=== PATIENT | male | born 1930 | race Caucasian/White ===

== ENCOUNTER 2017-09-20 15:00 | Inpatient (IN) | payer MEDICARE ==
[~2017-09-20] VITALS: Ht 170.2 cm; Wt 56.0 kg
[~2017-09-20 15:00] MED LIST: ASPIRIN 81 MG E81 MG PO; CELEXA20 MG PO; PRILOSEC20 MG PO; SYMBICORT 16010.2 GM INH; VENTOLIN HFA18 GM INH; XANAX0.5 MG
[2017-09-20 15:35] LABS: BASOPHILS 0.3 % (0-2); EOSINOPHILS 0.4 % (0-7); HEMATOCRIT 44.1 % (42.0-54.0); HEMOGLOBIN 14.5 g/dL (13.5-17.5); IMMATURE GRANULOCYTES 1.6 % (0-5); LYMPHOCYTES 13.6 % (15-50); MCH 32.2 pg (26.0-34.0); MCHC 32.9 g/dL (31.0-37.0); MCV 97.8 fL (80.0-100.0); MEAN PLATELET VOLUME 9.9 fL (7.4-10.4); MONOCYTES 20.5 % (2-11); NEUTROPHILS 63.6 % (40-80); RBC 4.51 10x6/uL (4.20-6.10); RDW 14.4 % (11.5-14.5); WBC 7.4 10x3/uL (4.8-10.8)
[2017-09-20 15:36] LABS: PLATELET COUNT 343 10x3/uL (130-400)
[2017-09-20 15:47] LABS: INR 1.2 (0.85-1.17); PROTIME 14.7 SECONDS (11.6-15.0)
[2017-09-20 15:51] LABS: ALBUMIN 3.2 g/dL (3.4-5.0); ALKALINE PHOSPHATASE 81 U/L (46-116); ALT (SGPT) 36 U/L (10-68); BILIRUBIN - TOTAL 0.89 mg/dL (0.2-1.3); CALC OSMOLALITY 272 mosm/kg (275-300); CARBON DIOXIDE 27.4 mmol/L (21.0-32.0); CHLORIDE - SERUM 97 mmol/L (98-107); CREATININE - SERUM 0.9 mg/dL (0.6-1.3); GLUCOSE 98 mg/dL (74-106); POTASSIUM - SERUM 3.9 mmol/L (3.5-5.1); PROTEIN - SERUM 8.1 g/dL (6.4-8.2); SODIUM 137 mmol/L (136-145); UREA NITROGEN 11 mg/dL (7-18); eGFR NON AFRICAN AMERICAN 85 mL/min (90-120)
[2017-09-20 15:58] LABS: PRO BNP 467 pg/mL (0-450)
[2017-09-20 16:03] LABS: TROPONIN-I < 0.017 ng/mL (0.000-0.060)
[2017-09-20 17:15] LABS: APPEARANCE CLEAR (CLEAR); BILIRUBIN NEGATIVE (NEGATIVE); COLOR AMBER (YELLOW); GLUCOSE NEGATIVE (NEGATIVE); KETONE MODERATE mg/dL (NEGATIVE); NITRITE NEGATIVE (NEGATIVE); PROTEIN TRACE mg/dL (NEGATIVE); UROBILINOGEN NORMAL (NORMAL)
[2017-09-20 17:18] LABS: BACTERIA FEW /hpf (NONE SEEN); MUCUS <1+ /lpf (NONE SEEN); RED CELLS - URINE RARE /hpf (0-5); WHITE CELLS - URINE 0-5 /hpf (0-5)
[2017-09-20 20:37] LABS: UDS - AMPHET NEGATIVE QUAL (NEGATIVE); UDS - BARB NEGATIVE QUAL (NEGATIVE); UDS - BENZO NEGATIVE QUAL (NEGATIVE); UDS - COCAINE NEGATIVE QUAL (NEGATIVE); UDS - OPIATE NEGATIVE QUAL (NEGATIVE); UDS - PCP NEGATIVE QUAL (NEGATIVE); UDS - THC NEGATIVE QUAL (NEGATIVE)
[2017-09-21] MEDS ORDERED: ADVAIR HFA 230-12 GM INH (00:18)
[2017-09-21] MEDS ORDERED: KLONOPIN1 MG PO (00:20)
[2017-09-21 04:00] VITALS: BP 142/68
[2017-09-21 04:39] VITALS: BP 149/73; BMI 19.3
[2017-09-21 05:50] LABS: BASOPHILS 0.1 % (0-2); EOSINOPHILS 0 % (0-7); IMMATURE GRANULOCYTES 0.6 % (0-5); MCH 31.5 pg (26.0-34.0); MCHC 32.5 g/dL (31.0-37.0); MCV 96.9 fL (80.0-100.0); MEAN PLATELET VOLUME 9.4 fL (7.4-10.4); NEUTROPHILS 50.3 % (40-80); PLATELET COUNT 370 10x3/uL (130-400); RDW 14.1 % (11.5-14.5); WBC 7.8 10x3/uL (4.8-10.8)
[2017-09-21 05:58] LABS: HEMATOCRIT 34.5 % (42.0-54.0); HEMOGLOBIN 11.2 g/dL (13.5-17.5); RBC 3.56 10x6/uL (4.20-6.10)
[2017-09-21 06:10] LABS: ALBUMIN 2.6 g/dL (3.4-5.0); ALKALINE PHOSPHATASE 71 U/L (46-116); CALCIUM 8.3 mg/dL (8.5-10.1); CHLORIDE - SERUM 100 mmol/L (98-107); CREATININE - SERUM 0.8 mg/dL (0.6-1.3); GLUCOSE 94 mg/dL (74-106); PROTEIN - SERUM 6.7 g/dL (6.4-8.2); SODIUM 136 mmol/L (136-145); eGFR NON AFRICAN AMERICAN > 90 mL/min (90-120)
[2017-09-21 06:13] LABS: ALT (SGPT) 26 U/L (10-68); CALC OSMOLALITY 269 mosm/kg (275-300); POTASSIUM - SERUM 3.1 mmol/L (3.5-5.1); UREA NITROGEN 8 mg/dL (7-18)
[2017-09-21 06:50] LABS: CARBON DIOXIDE 26.6 mmol/L (21.0-32.0)
[2017-09-21 08:17] VITALS: BP 141/73
[2017-09-21 12:14] VITALS: BMI 19.3
[2017-09-21 12:22] VITALS: Ht 170.2 cm; Wt 56.0 kg
[2017-09-21 12:45] VITALS: BP 165/83
[2017-09-21 16:51] VITALS: BP 143/87
[2017-09-21 20:00] VITALS: BP 145/83
[2017-09-22 04:00] VITALS: BP 137/72
[2017-09-22 06:49] LABS: BASOPHILS 0.1 % (0-2); EOSINOPHILS 0 % (0-7); HEMATOCRIT 37.8 % (42.0-54.0); HEMOGLOBIN 12.5 g/dL (13.5-17.5); IMMATURE GRANULOCYTES 1.3 % (0-5); LYMPHOCYTES 19.5 % (15-50); MCH 31.8 pg (26.0-34.0); MCHC 33.1 g/dL (31.0-37.0); MCV 96.2 fL (80.0-100.0); MEAN PLATELET VOLUME 9.5 fL (7.4-10.4); MONOCYTES 21.5 % (2-11); NEUTROPHILS 57.6 % (40-80); PLATELET COUNT 421 10x3/uL (130-400); RBC 3.93 10x6/uL (4.20-6.10); WBC 8.7 10x3/uL (4.8-10.8)
[2017-09-22 07:08] LABS: CALC OSMOLALITY 267 mosm/kg (275-300); CALCIUM 8.9 mg/dL (8.5-10.1); CARBON DIOXIDE 24.1 mmol/L (21.0-32.0); CHLORIDE - SERUM 99 mmol/L (98-107); CREATININE - SERUM 0.8 mg/dL (0.6-1.3); GLUCOSE 94 mg/dL (74-106); POTASSIUM - SERUM 3.3 mmol/L (3.5-5.1); SODIUM 135 mmol/L (136-145); UREA NITROGEN 8 mg/dL (7-18); eGFR NON AFRICAN AMERICAN > 90 mL/min (90-120)
[2017-09-22 08:16] VITALS: BP 146/76
[2017-09-22 12:11] VITALS: BP 155/76
[2017-09-22 15:26] VITALS: BP 134/72
[2017-09-22 20:00] VITALS: BP 118/64
[2017-09-23] VITALS: BP 143/82
[2017-09-23 04:00] VITALS: BP 110/66
[2017-09-23 04:53] LABS: BASOPHILS 0.1 % (0-2); EOSINOPHILS 0 % (0-7); HEMATOCRIT 33.5 % (42.0-54.0); HEMOGLOBIN 11.2 g/dL (13.5-17.5); IMMATURE GRANULOCYTES 1.2 % (0-5); LYMPHOCYTES 12.5 % (15-50); MCH 31.9 pg (26.0-34.0); MCHC 33.4 g/dL (31.0-37.0); MCV 95.4 fL (80.0-100.0); MEAN PLATELET VOLUME 9.1 fL (7.4-10.4); MONOCYTES 22.9 % (2-11); NEUTROPHILS 63.3 % (40-80); PLATELET COUNT 362 10x3/uL (130-400); RBC 3.51 10x6/uL (4.20-6.10); RDW 14.2 % (11.5-14.5); WBC 6.8 10x3/uL (4.8-10.8)
[2017-09-23 05:12] LABS: CALC OSMOLALITY 276 mosm/kg (275-300); CALCIUM 8.3 mg/dL (8.5-10.1); CARBON DIOXIDE 26.7 mmol/L (21.0-32.0); CHLORIDE - SERUM 103 mmol/L (98-107); CREATININE - SERUM 0.8 mg/dL (0.6-1.3); POTASSIUM - SERUM 3.1 mmol/L (3.5-5.1); SODIUM 138 mmol/L (136-145); UREA NITROGEN 7 mg/dL (7-18); eGFR NON AFRICAN AMERICAN > 90 mL/min (90-120)
[2017-09-23 05:13] LABS: GLUCOSE 147 mg/dL (74-106)
[2017-09-23 08:15] VITALS: BP 126/70
[2017-09-23 12:43] VITALS: BP 138/62
[2017-09-23 16:02] VITALS: BP 98/51
[2017-09-23 20:00] VITALS: BP 136/82
[2017-09-24 04:00] VITALS: BP 146/77
[2017-09-24 05:25] LABS: BASOPHILS 0.2 % (0-2); EOSINOPHILS 0 % (0-7); HEMATOCRIT 34.7 % (42.0-54.0); HEMOGLOBIN 11.4 g/dL (13.5-17.5); IMMATURE GRANULOCYTES 1.6 % (0-5); LYMPHOCYTES 21.2 % (15-50); MCH 31.7 pg (26.0-34.0); MCHC 32.9 g/dL (31.0-37.0); MCV 96.4 fL (80.0-100.0); MEAN PLATELET VOLUME 9.3 fL (7.4-10.4); MONOCYTES 27.7 % (2-11); NEUTROPHILS 49.3 % (40-80); PLATELET COUNT 399 10x3/uL (130-400); RDW 14.4 % (11.5-14.5); WBC 5.5 10x3/uL (4.8-10.8)
[2017-09-24 05:53] LABS: CALCIUM 8.5 mg/dL (8.5-10.1); CARBON DIOXIDE 24.7 mmol/L (21.0-32.0); CHLORIDE - SERUM 103 mmol/L (98-107); CREATININE - SERUM 0.7 mg/dL (0.6-1.3); POTASSIUM - SERUM 3.4 mmol/L (3.5-5.1); SODIUM 138 mmol/L (136-145); eGFR NON AFRICAN AMERICAN > 90 mL/min (90-120)
[2017-09-24 06:03] LABS: CALC OSMOLALITY 271 mosm/kg (275-300); GLUCOSE 89 mg/dL (74-106); UREA NITROGEN 3 mg/dL (7-18)
[2017-09-24 08:14] VITALS: BP 137/78
[2017-09-24 09:08] LABS: ANA REFLEX - DIRECT Negative (Negative)
[2017-09-24] MEDS ORDERED: LOMOTIL TABLET1 TAB PO (10:03)
[2017-09-24] MEDS ORDERED: FLAGYL500 MG PO (10:03)
[2017-09-24] MEDS ORDERED: IPRAT-ALBUT 0.5-3 ML UPD (10:03)
[2017-09-24] MEDS ORDERED: LEVAQUIN750 MG PO (10:03)
[2017-09-24] MEDS ORDERED: MEGACE400 MG/10 PO (10:03)
[2017-09-24] MEDS ORDERED: NICODERM C1 PATCH .1 TRANSDERM (10:03)
[2017-09-24] MEDS ORDERED: FLORAJEN3 CAPS460 MG PO (10:03)
[2017-09-24] MEDS ORDERED: QUESTRAN PACK4 G/PKT PO (10:03)
[2017-09-24 12:11] LABS: IMMUNOGLOBULIN E 46 IU/mL (0-100)
[2017-09-24 13:11] VITALS: BP 142/76
[2017-09-24 15:15] LABS: IMMUNOGLOBULIN A 301 mg/dL (61-437); IMMUNOGLOBULIN M 63 mg/dL (15-143)
[2017-09-25 03:09] LABS: IGG SUBCLASS 1 982 mg/dL (248-810); IGG SUBCLASS 2 139 mg/dL (130-555); IGG SUBCLASS 3 127 mg/dL (15-102); IGG SUBCLASS 4 34 mg/dL (2-96)
[2017-09-25 11:17] LABS: ANGIOTENSIN CONVERTING ENZYME 25 U/L (14-82)
[2017-09-27 03:11] LABS: OVA + PARASITE EXAM Final report (())
[2017-09-27 18:10] LABS: FUNGAL - ASP FLAVUS Negative (Neg:<1:1); FUNGAL - ASP NIGER Negative (Neg:<1:1); FUNGAL - ASPER FUMIGATUS Negative (Neg:<1:1)
== END 2017-09-24 16:10 | disposition home or self-care (01) | DRG 391 ==
LOC: D.ER 15:00 → D.MS 21:46 → OBSVTIME 09-22 08:00 → D.MS 09-22 16:55
PROVIDERS: Emergency Medicine; Family Medicine; Internal Medicine Nephrology; Internal Medicine Pulmonary Disease; Nurse Practitioner Family
DX: A09 Infectious gastroenteritis and colitis, unspecified (principal); J18.9 Pneumonia, unspecified organism; E46 Unspecified protein-calorie malnutrition; Z68.1 Body mass index [BMI] 19.9 or less, adult; F17.203 Nicotine dependence unspecified, with withdrawal; E86.0 Dehydration; E87.6 Hypokalemia; J44.9 Chronic obstructive pulmonary disease, unspecified; I25.10 Atherosclerotic heart disease of native coronary artery without angina pectoris; F32.9 Major depressive disorder, single episode, unspecified; J61 Pneumoconiosis due to asbestos and other mineral fibers; K21.9 Gastro-esophageal reflux disease without esophagitis; K80.20 Calculus of gallbladder without cholecystitis without obstruction; K57.90 Diverticulosis of intestine, part unspecified, without perforation or abscess without bleeding; D64.9 Anemia, unspecified; F41.0 Panic disorder [episodic paroxysmal anxiety]; F41.9 Anxiety disorder, unspecified

== ENCOUNTER → 2017-10-16 07:39 | Outpatient (CLI) | payer MEDICARE ==
[2017-09-21 12:22] VITALS: BMI 19.3
[~2017-10-16 07:39] MED LIST changes: +ADVAIR HFA 230-12 GM INH; +FLAGYL500 MG PO; +FLORAJEN3 CAPS460 MG PO; +IPRAT-ALBUT 0.5-3 ML UPD; +KLONOPIN1 MG PO; +LEVAQUIN750 MG PO; +LOMOTIL TABLET1 TAB PO; +MEGACE400 MG/10 PO; +NICODERM C1 PATCH .1 TRANSDERM; +QUESTRAN PACK4 G/PKT PO
== END | disposition home or self-care (01) ==
LOC: D.RT 07:39
DX: J18.9 Pneumonia, unspecified organism (principal)

== ENCOUNTER 2019-02-18 12:46 | Emergency (ER) | payer MEDICARE ==
[~2019-02-18] VITALS: Ht 170.2 cm; Wt 53.2 kg
[2019-02-18 12:57] VITALS: Ht 170.2 cm; Wt 53.2 kg
[2019-02-18] MEDS ORDERED: ZOVIRAX800 MG PO (13:00)
[2019-02-18] MEDS ORDERED: KEFLEX500 MG PO (13:00)
[2019-02-18] MEDS ORDERED: GABAPENTIN100 MG PO (15:01)
[2019-02-18 15:24] VITALS: BP 120/64
== END 2019-02-18 15:24 | disposition home or self-care (01) ==
LOC: D.ER 12:46
DX: B02.9 Zoster without complications (principal); R07.9 Chest pain, unspecified; M54.9 Dorsalgia, unspecified

== ENCOUNTER 2019-02-19 17:26 | Observation (INO) | payer MEDICARE, MEDICAID ==
[~2019-02-19 17:26] MED LIST changes: +GABAPENTIN100 MG PO; +KEFLEX500 MG PO; +ZOVIRAX800 MG PO
--- NOTE | 2019-02-19 18:14 | NUR ---
PT GIVEN URINAL AND ASKED TO PROVIDE URINE SAMPLE FOR ORDERED LABS. PT AND HIS FAMILY VOICED UNDERSTANDING.
[2019-02-19 19:04] LABS: BASOPHILS 0.3 % (0-2); EOSINOPHILS 0.8 % (0-7); HEMATOCRIT 38.8 % (42.0-54.0); HEMOGLOBIN 12.7 g/dL (13.5-17.5); IMMATURE GRANULOCYTES 0.5 % (0-5); LYMPHOCYTES 15.3 % (15-50); MCH 31.2 pg (26.0-34.0); MCHC 32.7 g/dL (31.0-37.0); MCV 95.3 fL (80.0-100.0); MEAN PLATELET VOLUME 9.6 fL (7.4-10.4); MONOCYTES 19.3 % (2-11); NEUTROPHILS 63.8 % (40-80); RBC 4.07 10x6/uL (4.20-6.10); RDW 14.5 % (11.5-14.5); WBC 3.7 10x3/uL (4.8-10.8)
[2019-02-19 19:05] LABS: PLATELET COUNT 183 10x3/uL (130-400)
--- NOTE | 2019-02-19 19:07 | NUR ---
HANDOFF REPORT GIVEN TO ANGEL NORWOOD.
[2019-02-19 19:17] LABS: ALBUMIN 3.4 g/dL (3.4-5.0); ALKALINE PHOSPHATASE 89 U/L (46-116); ALT (SGPT) 19 U/L (10-68); BILIRUBIN - TOTAL 0.59 mg/dL (0.2-1.3); CALC OSMOLALITY 280 mosm/kg (275-300); CALCIUM 8.6 mg/dL (8.5-10.1); CARBON DIOXIDE 30.5 mmol/L (21.0-32.0); CHLORIDE - SERUM 103 mmol/L (98-107); GLUCOSE 109 mg/dL (74-106); POTASSIUM - SERUM 3.8 mmol/L (3.5-5.1); PROTEIN - SERUM 7.2 g/dL (6.4-8.2); SODIUM 141 mmol/L (136-145); UREA NITROGEN 11 mg/dL (7-18); eGFR NON AFRICAN AMERICAN 75 mL/min (90-120)
[2019-02-19 19:28] LABS: CKMB 2.7 U/L (0.0-3.6); CREATINE KINASE 115 UL (21-232); MAGNESIUM - SERUM 2.2 mg/dL (1.8-2.4)
[2019-02-19 19:30] LABS: TROPONIN-I < 0.017 ng/mL (0.000-0.060)
--- NOTE | 2019-02-19 19:30 | NUR ---
URINE SAMPLE COLLECTED AND SENT TO LAB. PT ASKED FOR WATER, EDP NOTIFIED AND SAID IT WAS OKAY, PT GIVEN WATER.
[2019-02-19 19:34] LABS: APPEARANCE CLEAR (CLEAR); BACTERIA MODERATE /hpf (NONE SEEN); BILIRUBIN NEGATIVE (NEGATIVE); COLOR YELLOW (YELLOW); GLUCOSE NEGATIVE (NEGATIVE); KETONE NEGATIVE (NEGATIVE); NITRITE NEGATIVE (NEGATIVE); PROTEIN TRACE mg/dL (NEGATIVE); RED CELLS - URINE 0-5 /hpf (0-5); UROBILINOGEN NORMAL (NORMAL); WHITE CELLS - URINE 0-5 /hpf (0-5)
[2019-02-19 19:35] LABS: MUCUS <1+ /lpf (NONE SEEN)
--- NOTE | 2019-02-19 23:00 | NUR ---
RECIEVED PT FROM ER VIA WHEELCHAIR WITH HOSPITAL STAFF AT BEDSIDE. ALERT AND ORIENTED X4. RESPIRATIONS EVEN AND UNLABORED. VS STABLE AND AFEBRILE. NO VISUAL CUES OF DISTRESS NOTED. DENIES ANY OTHER NEEDS AT THIS TIME. BED LOW, SIDE RAILS X2. CALL LIGHT IN REACH. WILL CONTINUE TO MONITOR.
[2019-02-19 23:05] VITALS: BP 133/71; BMI 18.3
[2019-02-20 04:00] VITALS: BP 133/71
[2019-02-20 05:05] LABS: HEMATOCRIT 34.9 % (42.0-54.0); HEMOGLOBIN 11.5 g/dL (13.5-17.5); MCH 31.5 pg (26.0-34.0); MCV 95.6 fL (80.0-100.0); MEAN PLATELET VOLUME 9.6 fL (7.4-10.4); PLATELET COUNT 174 10x3/uL (130-400); RBC 3.65 10x6/uL (4.20-6.10); RDW 14.5 % (11.5-14.5)
[2019-02-20 05:07] LABS: LYMPHOCYTES 30 % (15-50); MONOCYTES 5 % (2-11); NEUTROPHILS 65 % (40-80); PLATELET ESTIMATE NORMAL
[2019-02-20 05:22] LABS: ALBUMIN 2.9 g/dL (3.4-5.0); ALKALINE PHOSPHATASE 74 U/L (46-116); BILIRUBIN - TOTAL 0.41 mg/dL (0.2-1.3); CALCIUM 8.1 mg/dL (8.5-10.1); CARBON DIOXIDE 27.2 mmol/L (21.0-32.0); CHLORIDE - SERUM 104 mmol/L (98-107); CREATININE - SERUM 0.9 mg/dL (0.6-1.3); POTASSIUM - SERUM 3.8 mmol/L (3.5-5.1); PROTEIN - SERUM 6.8 g/dL (6.4-8.2); SODIUM 139 mmol/L (136-145); UREA NITROGEN 10 mg/dL (7-18); eGFR NON AFRICAN AMERICAN 85 mL/min (90-120)
[2019-02-20 05:23] LABS: ALT (SGPT) 14 U/L (10-68); CALC OSMOLALITY 279 mosm/kg (275-300); GLUCOSE 157 mg/dL (74-106)
--- NOTE | 2019-02-20 07:10 | NUR ---
REPORT RECEIVED FROM SADDLE CUTTER. PATIENT SITTING UP IN BED AWAKE, ALERT AND ORIENTED X 4. PATIENT IS STABLE AND VSS. PATIENT DENIES ANY NEEDS OR PAIN. WILL CONTINUE TO MONITOR. SR UP X2 BED IN LOW POSITION AND CALL LIGHT IN REACH. WILL CONTINUE WITH PLAN OF CARE.
[2019-02-20 09:23] VITALS: BP 129/65
[2019-02-20 09:52] VITALS: BMI 18.3
[2019-02-20 11:17] VITALS: BMI 18.3
[2019-02-20 12:06] LABS: % SATURATION 26 % (15-55); IRON 44 ug/dl (35-150); TOTAL IRON BIND CAPACITY 163 ug/dl (260-445); UNSAT IRON BIND CAPACITY 119 ug/dl (150-375)
--- NOTE | 2019-02-20 13:30 | NUR ---
COLLECTED URINE SAMPLE PER ORDER. STOOL SAMPLE STILL PENDING . ORTHOSTATIC VS TAKEN. SITTING 124/53 HR 70 R18 O2SAT 99%. LAYING 119/62 HR 64 R16 O2 SAT 100 URINE SPECIMEN COLLECFTED PER ORDER. STOOL SAMPLE STILL PENDING. ORTHSTATIC VSS TAKEN PER ORDER. LAYING BP119/60 HR64 R16 O2SAT 100%; SITTING BP124/53 HR70 R 18 O2 SAT 98%; STANDING BP119/75 HR 72 R 18 O2 SAT 100%. PATIENT IS STABLE AND VSS. DTR AT BEDSIDE. WILL CONTINUE TO MONITOR. SR UP X 2 BED IN LOW POSITION AND CALL LIGHT IN REACH
[2019-02-20 13:35] VITALS: BP 123/62
--- NOTE | 2019-02-20 17:54 | NUR ---
PATIENT RESTING COMFORTABLY IN BED WITH DTR AT BS. WILL CONTINUE TO MONITOR.
[2019-02-20 18:00] VITALS: BP 119/62
[2019-02-20 20:00] VITALS: BP 151/71
--- NOTE | 2019-02-20 21:00 | NUR ---
PT ALERT/ORIENTED. AIRBORNE ISOLATION PRECAUTIONS. ASSESSMENT COMPLETE PER FLOW-SHEET. UP WITH ASSIST/WALKER. NO NEEDS AT THIS TIME. WILL CONTINUE TO MONITOR.
[2019-02-21 04:00] VITALS: BP 111/54
[2019-02-21 05:06] LABS: BASOPHILS 0 % (0-2); EOSINOPHILS 0.4 % (0-7); HEMATOCRIT 33.3 % (42.0-54.0); HEMOGLOBIN 10.9 g/dL (13.5-17.5); IMMATURE GRANULOCYTES 0.4 % (0-5); LYMPHOCYTES 23.1 % (15-50); MCH 31.7 pg (26.0-34.0); MCHC 32.7 g/dL (31.0-37.0); MCV 96.8 fL (80.0-100.0); MEAN PLATELET VOLUME 9.7 fL (7.4-10.4); MONOCYTES 9.3 % (2-11); NEUTROPHILS 66.8 % (40-80); PLATELET COUNT 192 10x3/uL (130-400); RBC 3.44 10x6/uL (4.20-6.10); RDW 14.7 % (11.5-14.5); WBC 2.3 10x3/uL (4.8-10.8)
[2019-02-21 05:19] LABS: CALC OSMOLALITY 286 mosm/kg (275-300); CALCIUM 8.2 mg/dL (8.5-10.1); CARBON DIOXIDE 26.4 mmol/L (21.0-32.0); CHLORIDE - SERUM 110 mmol/L (98-107); CREATININE - SERUM 0.9 mg/dL (0.6-1.3); GLUCOSE 113 mg/dL (74-106); SODIUM 144 mmol/L (136-145); UREA NITROGEN 10 mg/dL (7-18); eGFR NON AFRICAN AMERICAN 85 mL/min (90-120)
--- NOTE | 2019-02-21 07:10 | NUR ---
REPORT RECEIVED FROM CATERPILLAR OPERATOR AND PATIENT CARE ASSUMED. PATIENT LAYING IN BED ON LEFT SIDE WITH EYES CLOSED AND BREATHING EVENLY. VSS. WILL CONTINUE WITH PLAN OF CARE. SR UP X 2 BED IN LOW POSTION AND CALL LIGHT IN REACH.
[2019-02-21 09:16] LABS: FOLATE (FOLIC ACID) - SERUM 11.2 ng/mL (>3.0)
--- NOTE | 2019-02-21 09:16 | NUR ---
*WOUND CARE* CLOSED BLISTER CLUSTER IN RIGHT UPPER TORSO, RIGHT FLANK AND RIGHT UPPER BACK. CONTINUE TO MONITOR IN ASSESSMENTS AND NEEDED.
--- NOTE | 2019-02-21 10:21 | NUR ---
PATIENT IS STABLE AND VSS. PATIENT AND DTR REFUSED KLONIPIN STATING THAT MED MAKES HIM TOO SLEEPY DURING THE DAY AND JUST WANTS TO TAKE IT AT HS. PATIENT ALSO REFUSED NICODERM PATCH. ASSESSMENT COMPLETED. PATIENT DENIES ANY NEEDS OR PAIN. WILL CONTINUE TO MONITOR. SR UP X 2 BED IN LOW POSITION AND CALL LIGHT IN REACH.
[2019-02-21 13:12] VITALS: BP 92/46
--- NOTE | 2019-02-21 15:07 | NUR ---
REMINDED PATIENT AND DTR THAT WE NEEDE STOOL SPECIMEN BUT PATIENT HAS NOT HAD A BM. WILL CONTINUE TO MONITOR.
[2019-02-21 17:11] VITALS: BP 98/57
--- NOTE | 2019-02-21 17:31 | NUR ---
PATIENT UP TO SHOWER WITH DTR ASSIST. COMPLETE LINEN CHANGE.
--- NOTE | 2019-02-21 20:00 | NUR ---
ALERT SITTING UP ON SIDE OF BED DAUGHTER AT BEDSIDE, DENIES ANY NEEDS AT THIS TIME, SHIFT ASSESSMENT DONE, CALL LIGHT IN REACH, USES WALKER FOR AMBULATION, INSTRUCTED TO CALL FOR ASSISTANCE BEFORE GETTING UP, VERBALIZED UNDERSTANDING
[2019-02-21 20:22] VITALS: BP 104/58
[2019-02-22] VITALS (7 sets, daily range): BP systolic 98–128; BP diastolic 51–68
[2019-02-22 04:59] LABS: BASOPHILS 0 % (0-2); EOSINOPHILS 0 % (0-7); HEMATOCRIT 32.9 % (42.0-54.0); HEMOGLOBIN 10.6 g/dL (13.5-17.5); IMMATURE GRANULOCYTES 0.7 % (0-5); LYMPHOCYTES 8.4 % (15-50); MCH 31.2 pg (26.0-34.0); MCHC 32.2 g/dL (31.0-37.0); MCV 96.8 fL (80.0-100.0); MEAN PLATELET VOLUME 9.7 fL (7.4-10.4); MONOCYTES 5.8 % (2-11); NEUTROPHILS 85.1 % (40-80); PLATELET COUNT 212 10x3/uL (130-400); RDW 14.9 % (11.5-14.5)
[2019-02-22 05:04] LABS: WBC 4.2 10x3/uL (4.8-10.8)
[2019-02-22 05:21] LABS: CALC OSMOLALITY 288 mosm/kg (275-300); CARBON DIOXIDE 25.5 mmol/L (21.0-32.0); CHLORIDE - SERUM 110 mmol/L (98-107); CREATININE - SERUM 0.8 mg/dL (0.6-1.3); GLUCOSE 140 mg/dL (74-106); POTASSIUM - SERUM 3.7 mmol/L (3.5-5.1); SODIUM 144 mmol/L (136-145); eGFR NON AFRICAN AMERICAN > 90 mL/min (90-120)
[2019-02-22 05:22] LABS: UREA NITROGEN 13 mg/dL (7-18)
--- NOTE | 2019-02-22 07:30 | NUR ---
RECEIVED A/A/OX4. DENIES ANY PAIN AT PRESENT TIME AND NO REQUESTS VOICED. ASSESSMENT COMPLETED AND WILL CONTINUE PLAN OF CARE. DAUGHTER AT BEDSIDE.
--- NOTE | 2019-02-22 13:09 | NUR ---
PATIENT IS IN AIRBORNE ISOLATION
--- NOTE | 2019-02-22 13:09 | NUR ---
I have reviewed this patient and I concur with the Shift Assessment completed by the Licensed Practical Nurse today this shift.
--- NOTE | 2019-02-22 20:02 | NUR ---
EVENING ROUNDS COMPLETED. REPORT RECEIVED. PT SITTING UP IN BED WITH EYES OPEN, RR EVEN AND UNLABORED. BED IN LOW POSITION. NO S/S OF DISTRESS NOTED. SON AT BED SIDE. INTRODUCED SELF TO PT. PROVIDED PT NEW LINEN AND SHEETS PER PT REQUEST. PT DENIES FURTHER NEEDS AT THIS TIME. CALL LIGHT IN REACH. WILL CTM.
--- NOTE | 2019-02-23 00:43 | NUR ---
ORTHOSTATIC VITAL SIGNS, LYING 114/61, PULSE 114, 97%. SITTIN/59, PULSE 110, 96% STANDIN/57, PULSE 107, 95%
--- NOTE | 2019-02-23 03:09 | NUR ---
I have reviewed this patient and I concur with the Shift Assessment completed by the Licensed Practical Nurse today this shift.
[2019-02-23 03:55] LABS: BASOPHILS 0 % (0-2); EOSINOPHILS 0 % (0-7); HEMATOCRIT 30.7 % (42.0-54.0); IMMATURE GRANULOCYTES 1.6 % (0-5); LYMPHOCYTES 7.8 % (15-50); MCH 31.5 pg (26.0-34.0); MCHC 32.6 g/dL (31.0-37.0); MCV 96.8 fL (80.0-100.0); MEAN PLATELET VOLUME 9.2 fL (7.4-10.4); MONOCYTES 7.2 % (2-11); NEUTROPHILS 83.4 % (40-80); PLATELET COUNT 229 10x3/uL (130-400); RBC 3.17 10x6/uL (4.20-6.10)
[2019-02-23 04:06] LABS: CALC OSMOLALITY 283 mosm/kg (275-300); CALCIUM 7.9 mg/dL (8.5-10.1); CHLORIDE - SERUM 111 mmol/L (98-107); CREATININE - SERUM 0.9 mg/dL (0.6-1.3); GLUCOSE 129 mg/dL (74-106); POTASSIUM - SERUM 3.6 mmol/L (3.5-5.1); SODIUM 142 mmol/L (136-145); UREA NITROGEN 10 mg/dL (7-18); eGFR NON AFRICAN AMERICAN 85 mL/min (90-120)
--- NOTE | 2019-02-23 07:30 | NUR ---
A/A/OX4. STATES HE IS FEELING MUCH BETTER TODAY AND IS READY TO GO HOME. DENIES ANY PAIN OR DISCOMFORT AND NO REQUESTS VOICED. ASSESSMENT COMPLETED AND WILL CONTINUE POC. SON AT BEDSIDE.
[2019-02-23 07:59] VITALS: BP 120/63
[2019-02-23 11:57] VITALS: BP 129/64
[2019-02-23] MEDS ORDERED: MEGACE400 MG/10 PO (14:52)
--- NOTE | 2019-02-23 15:08 | NUR ---
DISCHARGE ORDER RECEIVED PER DR. GOMEZ. DISCHARGE HAS BEEN APPROVED BY CARDIIOLOGY AND HEMATOLOGY,
--- NOTE | 2019-02-23 15:57 | NUR ---
REFILL ON MEGACE SUSPENSION 400 MG BID X 1 MONTH, PER DR. GOMEZ, CALLED TO [facility], [phone], SPOKE WITH DEBBI, PHARMACIST.
--- NOTE | 2019-02-23 16:20 | NUR ---
DISCHARGE INSTRUCTIONS REVIEWED WITH PT AND HIS DAUGHTER. VERBALIZED UNDERSTANDING WITH NO QUESTIONS. IV DC'D WITH TIP INTACT. LEFT FLOOR VIA W/C WITH ALL PERSONAL BELONGINGS AND LEFT FACILITY VIA PRIVATE VEHICLE WITH HIS DAUGHTER.
--- NOTE | 2019-02-24 07:55 | MORECARE ---
CASE MANAGEMENT DISCHARGE SUMMARY PATIENT: LYN DANIELLE UNIT: [id number] ADM DATE: 02/19/19 AGE: 88 : 32 SEX: M ROOM/BED: D.2101 AUTHOR: SHAVONNE TONG PHYSICIAN: REFERRING PHYSICIAN: MERY GOMEZ MD DATE OF SERVICE: 02/24/19 Discharge Plan Patient Name: LYN DANIELLE Facility: [facility]:[place] : 1930 Planned Disposition: Home Anticipated Discharge Date: 02/23/19 Discharge Date: 02/23/2019 Expected LOS: 4 Initial Reviewer: [id number] Initial Review Date: 02/24/2019 Generated: 02/24/19 8:55 am Patient Name: LYN DANIELLE Page [id number] at 0755 All edits/amendments must be made on the electronic document DICTATION DATE: 02/24/19 0755 LOGISTICS SYSTEM ENGINEER: TASHA 02/24/19 0755 RPT#: [id number] DC DATE:02/23/19 STATUS: DIS IN [facility] [address] [place] [address] END OF REPORT
== END 2019-02-23 16:22 | disposition home or self-care (01) ==
LOC: D.ER 17:26 → D.M2 21:18 → OBSVTIME 21:18 → D.M2 02-23 16:22
PROVIDERS: Emergency Medicine; Family Medicine; ADMIT Internal Medicine Nephrology; ATTEND Internal Medicine Nephrology
DX: R55 Syncope and collapse (principal); B02.9 Zoster without complications; D70.9 Neutropenia, unspecified; D50.9 Iron deficiency anemia, unspecified; J44.9 Chronic obstructive pulmonary disease, unspecified; I25.10 Atherosclerotic heart disease of native coronary artery without angina pectoris; K21.9 Gastro-esophageal reflux disease without esophagitis; F41.0 Panic disorder [episodic paroxysmal anxiety]; F17.213 Nicotine dependence, cigarettes, with withdrawal; R19.7 Diarrhea, unspecified